=== PATIENT | female | born 1965 | race Caucasian/White ===

== ENCOUNTER 2016-10-11 10:29 | Day surgery (SDC) | payer BC ==
[2016-10-08 11:15] VITALS: BMI 30.9
[~2016-10-11 10:29] MED LIST: LACTATED RINGERS 1,000 ML IV SCH; LIDOCAINE 1% 20 ML VIAL (10MG/ML) FOR IV START INTRADERMA PRN
[2016-10-11 12:10] VITALS: RESP 18; TEMP 98
[2016-10-11] MEDS ORDERED: LACTATED RINGERS 1,000 ML IV ONE (12:14)
[2016-10-11] MEDS ORDERED: PROPOFOL 10 MG/ML 20 ML VIAL IV ONE (12:41)
--- NOTE | 2016-10-11 12:58 | P.PCN ---
Date of Procedure: 10/11/16 Preoperative Diagnosis: Postoperative Diagnosis: Procedure(s) Performed: BRIEF HISTORY: Patient is a 51-year-old pleasant white female, scheduled for an elective colonoscopy as a part of screening for colorectal neoplasia. PROCEDURE PERFORMED: Colonoscopy. PREOPERATIVE DIAGNOSIS: Screening for colon cancer. IV sedation per Anesthesia. PROCEDURE: After informed consent was obtained, the patient, was brought into the endoscopy unit. IV sedation was administered by Anesthesia under continuous monitoring. Digital rectal examination was normal. Initially the Olympus CF- 160 flexible video colonoscope was then inserted in the rectum, gradually advanced into the cecum without any difficulty. Careful examination was performed as the scope was gradually being withdrawn. Ileocecal valve and the appendiceal orifice were visualized and appeared normal. Prep was excellent. Mucosa of the cecum, ascending colon, transverse colon, descending colon, sigmoid colon, and rectum appeared normal. Retroflexion was performed in the rectum and no lesions were seen. The patient tolerated the procedure well. IMPRESSION: Normal-appearing colon from rectum to cecum with no evidence of colorectal neoplasia. RECOMMENDATIONS: Findings of this examination were discussed with the patient as well as his family. She was advised to have a repeat screening colonoscopy in 10 years. Implants: Indications for Procedure: Operative Findings: Description of Procedure:
[2016-10-11 13:55] VITALS: BP 117/60; PULSE 66
== END 2016-10-11 14:12 | disposition home or self-care (01) ==
LOC: ORWHC2ENDO 10:29
PROVIDERS: ATTEND Internal Medicine Gastroenterology
DX: Z12.11 Encounter for screening for malignant neoplasm of colon (principal); E07.9 Disorder of thyroid, unspecified; Z79.899 Other long term (current) drug therapy; Z87.891 Personal history of nicotine dependence
CPT/HCPCS: 81025; J2704; G0121

== ENCOUNTER → 2017-01-20 | Outpatient (CLI) | payer BC ==
--- NOTE | 2017-01-22 08:05 | MM ---
Reason for exam: screening (asymptomatic). Last mammogram was performed 1 year and 8 months ago. History: Cancelled Left Mammotome of the left breast, May 30, 2006. Physical Findings: A clinical breast exam by your physician is recommended on an annual basis and results should be correlated with mammographic findings. MG 3D Screening Mammo W/Cad Bilateral CC and MLO view(s) were taken. Prior study comparison: May 19, 2015, bilateral MG screening mammo w CAD. January 16, 2012, CAD bilateral diagnostic mammogram. May 24, 2010, bilateral digital screening mammo w/CAD. There are scattered fibroglandular densities. No significant changes when compared with prior studies. ASSESSMENT: Negative, BI-RAD 1 RECOMMENDATION: Routine screening mammogram of both breasts in 1 year.
== END | disposition home or self-care (01) ==
LOC: RADMAMWWP 16:18
PROVIDERS: ATTEND Obstetrics & Gynecology
DX: Z12.31 Encounter for screening mammogram for malignant neoplasm of breast (principal)
CPT/HCPCS: 77063; G0202

== ENCOUNTER → 2017-05-07 | Outpatient (CLI) | payer OTHER ==
--- NOTE | 2017-05-07 13:09 | ECHOS ---
STRESS ECHOCARDIOGRAM INDICATIONS: Chest pain. MEDICATIONS: Synthroid. BASELINE HEART RATE: 89 BASELINE BLOOD PRESSURE: 118/88 MAXIMUM HEART RATE: 151 MAXIMUM BLOOD PRESSURE: 176/47 85% MPHR: 144 100% MPHR: 169 METS: 10.3 MAXIMUM STAGE REACHED: 3 TOTAL EXERCISE TIME: 9:00 CLINICAL INFORMATION: Patient was exercised for a total period of 9 minutes. Peak heart rate of 151 was achieved. Maximum blood pressure of 176/47 mmHg was noted. Resting EKG shows normal sinus rhythm with normal VT interval and QRS duration and normal ST-T waves. No ST- segment depression suggestive of ischemia was noted. The baseline echocardiographic images reveal normal left ventricular chamber size with normal left ventricular systolic function. In the immediate post exercise period a normal increase in the wall thickness and contractility is noted. FINAL IMPRESSION: 1. This stress echocardiographic study is negative for stress-induced ischemia. 2. EKG portion of the stress test is not suggestive of ischemia. MMODL / IJN: [id number] /
== END | disposition home or self-care (01) ==
LOC: RADNMMAIN 09:47
PROVIDERS: ATTEND Family Medicine
DX: R07.9 Chest pain, unspecified (principal); E66.09 Other obesity due to excess calories; M79.602 Pain in left arm; Z82.49 Family history of ischemic heart disease and other diseases of the circulatory system
CPT/HCPCS: 93017; 93350

== ENCOUNTER → 2017-07-10 | Outpatient (CLI) | payer OTHER ==
--- NOTE | 2017-07-10 08:58 | US ---
EXAMINATION TYPE: US abdomen limited DATE OF EXAM: 07/10/2017 COMPARISON: US CLINICAL HISTORY: K76.0 Fatty Changes in Liver. Elevated liver enzymes EXAM MEASUREMENTS: Liver Length: 11.7 cm Gallbladder Wall: Surgically absent cm CBD: 0.5 cm Right Kidney: 12.7 x 5.1 x 5.6 cm Pancreas: visualized portions wnl Liver: There is diminished visualization of the portal triads, most commonly relating to mild hepati c steatosis. This limits evaluation for underlying hepatic masses. Gallbladder: Surgically absent CBD: wnl Right Kidney: small cortical cyst measures 1.5 x 1.2 x 1.4 cm, cortex appears thinned, lobular conto ur. IMPRESSION: 1. Hyperechoic hepatic echotexture most commonly related to hepatic steatosis. This appears mild in d egree. 2. Benign-appearing right cortical renal cyst.
== END | disposition home or self-care (01) ==
LOC: RADUSWWP 07:59
PROVIDERS: ATTEND Family Medicine
DX: K76.89 Other specified diseases of liver (principal); N28.1 Cyst of kidney, acquired; R74.0 Nonspecific elevation of levels of transaminase and lactic acid dehydrogenase [LDH]
CPT/HCPCS: 76705

== ENCOUNTER → 2019-03-08 | Outpatient (CLI) | payer OTHER ==
--- NOTE | 2019-03-11 10:58 | MM ---
Reason for exam: screening (asymptomatic). Last mammogram was performed 2 years and 2 months ago. History: Cancelled Left Mammotome of the left breast, May 30, 2006. Physical Findings: A clinical breast exam by your physician is recommended on an annual basis and results should be correlated with mammographic findings. MG 3D Screening Mammo W/Cad Bilateral CC and MLO view(s) were taken. Prior study comparison: January 20, 2017, bilateral MG 3d screening mammo w/cad. May 19, 2015, bilateral MG screening mammo w CAD. There are scattered fibroglandular densities. There are benign appearing round calcifications bilaterally. There is no discrete abnormality. ASSESSMENT: Benign, BI-RAD 2 RECOMMENDATION: Routine screening mammogram of both breasts in 1 year.
== END ==
LOC: RADMAMWWP 16:18
PROVIDERS: ATTEND Obstetrics & Gynecology
DX: Z12.31 Encounter for screening mammogram for malignant neoplasm of breast (principal)
CPT/HCPCS: 77063; 77067

== ENCOUNTER → 2020-02-10 | Outpatient (CLI) | payer OTHER ==
--- NOTE | 2020-02-10 16:54 | BD ---
EXAMINATION TYPE: Axial Bone Density DATE OF EXAM: 02/10/2020 COMPARISON: NONE CLINICAL HISTORY: 54-year-old female postmenopausal screening Height: 63.7 IN Weight: 172 LBS FRAX RISK QUESTIONS: Family History (Parent hip fracture): MOTHER Secondary Osteoporosis: 5. Chronic liver disease: FATTY LIVER RISK FACTORS HISTORY OF: Family History of Osteoporosis: YES MOTHER Active: YES Diet low in dairy products/other sources of calcium: YES Postmenopausal woman: AGE 54 MEDICATIONS: Thyroid Medications: YES Which medication: Synthroid How Lon YEARS Additional Medications: SYNTHROID, FISH OIL, MILK THISTLE, NAC, BABY ASPIRIN, EXAM MEASUREMENTS: Bone mineral densitometry was performed using the [employer] System. Bone mineral density as measured about the Lumbar spine is: ----- L1-L4(G/cm2): 1.210 T Score Values are as follows: ----- L2: -0.2 ----- L3: 0.5 ----- L4: 0.8 ----- L1-L4: 0.2 Bone mineral density BASELINE Bone mineral density about the R hip (g/cm2): 0.940 Bone mineral density about the L hip (g/cm2): 0.991 T Score values are as follows: -----R Neck: -0.7 -----L Neck: -0.3 -----R Total: 0.1 -----L Total: 0.1 Bone mineral density BASELINE IMPRESSION: Normal (Values between +1 and -1 indicate normal bone mass). Consider repeating this study in 5 year s or sooner if there is some new clinical indication. NOTE: T-SCORE=SD OF THE YOUNG ADULT MEAN.
== END | disposition home or self-care (01) ==
LOC: RADBDWWP 09:42
PROVIDERS: ATTEND Obstetrics & Gynecology
DX: N95.1 Menopausal and female climacteric states (principal)
CPT/HCPCS: 77080

== ENCOUNTER 2020-05-24 08:58 | Emergency (ER) | payer OTHER ==
[2020-05-24 09:05] VITALS: BP 132/72; PULSE 97; RESP 18; TEMP 98.6
--- NOTE | 2020-05-24 09:39 | ED ---
General Adult HPI - General Chief complaint: Upper Respiratory Infection Stated complaint: Covid+, cough Time Seen by Provider: 05/24/20 09:05 Source: patient, RN notes reviewed Mode of arrival: ambulatory Limitations: no limitations - History of Present Illness Initial comments: This a 55-year-old female presents emergency Department chief complaint of cough, known covid patient states that she's just the present 1 week ago at her PCP. Patient states she started fever 1 day prior. Patient states that she has no shortness of breath. She was advised to emergency room should any change in her symptoms. She states she woke up with a coughing fit but states that she began to no chest pain or shortness of breath. She states she has mild nasal co ngestion. Patient only has a history of hypothyroidism no other major past medical history no splenectomy. Patient denies any other complaints. - Related Data Home Medications Medication Instructions Recorded Confirmed Levothyroxine Sodium [Synthroid] 75 mcg PO DAILY 06/18/16 05/24/20 Albuterol Inhaler [Ventolin Hfa 2 puff INHALATION RT-Q4H PRN 05/24/20 05/24/20 Inhaler] Allergies Allergy/AdvReac Type Severity Reaction Status Date / Time bee sting AdvReac Unknown Swelling, Uncoded 05/24/20 10:00 Itching Review of Systems ROS Statement: Those systems with pertinent positive or pertinent negative responses have been documented in the HPI. ROS Other: All systems not noted in ROS Statement are negative. Past Medical History Past Medical History: Thyroid Disorder History of Any Multi-Drug Resistant Organisms: None Reported Past Surgical History: Cholecystectomy, Hernia Repair, Orthopedic Surgery Additional Past Surgical History / Comment(s): INCISIONAL HERNIA, ARTHROSCOPIC SHOULDER SURGERY. Past Anesthesia/Blood Transfusion Reactions: No Reported Reaction Past Psychological History: No Psychological Hx Reported Smoking Status: Never smoker Past Alcohol Use History: Rare Past Drug Use History: None Reported - Past Family History Mother Family Medical History: Deep Vein Thrombosis (DVT) Brother(s) Family Medical History: Cancer Additional Family Medical History / Comment(s): STAGE 4 LYMPHOMA. Father Family Medical History: Coronary Artery Disease (CAD) General Exam Limitations: no limitations General appearance: alert, in no apparent distress Head exam: Present: atraumatic, normocephalic, normal inspection Eye exam: Present: normal appearance, PERRL, EOMI. Absent: scleral icterus, conjunctival injection, periorbital swelling ENT exam: Present: normal exam, normal oropharynx, mucous membranes moist Neck exam: Present: normal inspection, full ROM. Absent: tenderness, menin gismus, lymphadenopathy Respiratory exam: Present: normal lung sounds bilaterally. Absent: respiratory distress, wheezes, rales, rhonchi, stridor Cardiovascular Exam: Present: regular rate, normal rhythm, normal heart sounds. Absent: systolic murmur, diastolic murmur, rubs, gallop, clicks GI/Abdominal exam: Present: soft, normal bowel sounds. Absent: distended, tenderness, guarding, rebound, rigid Neurological exam: Present: alert, oriented X3 Skin exam: Present: warm, dry, intact, normal color. Absent: rash Course Vital Signs 05/24/20 05/24/20 09:00 10:09 Temperature 98.6 F Pulse Rate 97 Respiratory 18 Rate Blood Pressure 132/72 O2 Sat by Pulse 94 L 97 Oximetry Medical Decision Making - Medical Decision Making Patient results x-ray shows mild patchy areas consistent with covid 19 infection. Patient pulse ox is 96-97 in the room ambulatory was around 95%. She has no current shortness of breath. Patient be discharged in stable c ondition return parameters were discussed. Disposition Clinical Impression: COVID-19 Disposition: HOME SELF-CARE Condition: Stable Instructions (If sedation given, give patient instructions): Coronavirus Disease 2019 (COVID-19) Additional Instructions: Please return to the Emergency Department if symptoms worsen or any other concerns. Is patient prescribed a controlled substance at d/c from ED?: No Referrals: Angel Mcneill DO [Primary Care Provider] - 1-2 days Time of Disposition: 10:12
--- NOTE | 2020-05-24 10:00 | XR ---
EXAMINATION TYPE: XR chest 2V DATE OF EXAM: 05/24/2020 COMPARISON: NONE HISTORY: Cough and fever. TECHNIQUE: Frontal and lateral views of the chest are obtained. FINDINGS: There are multifocal predominantly peripheral opacities in the mid to lower lungs bilatera lly. No pleural effusion or pneumothorax. The cardiac silhouette size is within normal limits. The osseous structures are intact. Cholecystectomy clips noted. IMPRESSION: Multifocal predominantly peripheral bilateral mid to lower lung opacities consistent wit h covid-19 infection.
== END 2020-05-24 10:18 | disposition home or self-care (01) ==
LOC: EC 08:58
DX: U07.1 COVID-19 (principal); E03.9 Hypothyroidism, unspecified; Z79.890 Hormone replacement therapy; Z90.49 Acquired absence of other specified parts of digestive tract; Z91.030 Bee allergy status
CPT/HCPCS: 71046; 99283

== ENCOUNTER → 2021-01-08 | Outpatient (CLI) | payer BC ==
--- NOTE | 2021-01-10 10:48 | MM ---
Reason for exam: screening (asymptomatic). Last mammogram was performed 1 year and 10 months ago. History: Patient is postmenopausal. Cancelled Left Mammotome of the left breast, May 30, 2006. Physical Findings: A clinical breast exam by your physician is recommended on an annual basis and results should be correlated with mammographic findings. MG 3D Screening Mammo W/Cad Bilateral CC and MLO view(s) were taken. Prior study comparison: March 08, 2019, bilateral MG 3d screening mammo w/cad. January 20, 2017, bilateral MG 3d screening mammo w/cad. May 19, 2015, bilateral MG screening mammo w CAD. There are scattered fibroglandular densities. No significant changes when compared with prior studies. ASSESSMENT: Benign, BI-RAD 2 RECOMMENDATION: Routine screening mammogram of both breasts in 1 year.
== END | disposition home or self-care (01) ==
LOC: RADMAMWWP 16:29
PROVIDERS: ATTEND Obstetrics & Gynecology
DX: Z12.31 Encounter for screening mammogram for malignant neoplasm of breast (principal); Z78.0 Asymptomatic menopausal state
CPT/HCPCS: 77063; 77067

== ENCOUNTER → 2022-01-17 | Outpatient (CLI) | payer BC ==
--- NOTE | 2022-01-17 17:06 | MM ---
Reason for Exam: Screening (asymptomatic). Last screening mammogram was performed 12 month(s) ago. Patient History: Menarche at age 14. First Full-Term at age 22. Postmenopausal. 05/30/2006, Cancelled Left Mammotome on the left side. Risk Values: Dot 5 year model risk: 1.1%. NCI Lifetime model risk: 7.4%. Prior Study Comparison: 05/19/2015 Bilateral Screening Mammogram, [facility]. 01/20/2017 Bilateral Screening Mammogram, [facility]. 03/08/2019 Bilateral Screening Mammogram, [facility]. 01/08/2021 Bilateral Screening Mammogram, [facility]. Tissue Density: The breast tissue is almost entirely fat. Findings: Analyzed By CAD. Pattern appears stable. No suspicious groups of microcalcifications, spiculated or lobular masses, architectural distortion or other secondary signs of malignancy are mammographically apparent. Overall Assessment: Benign, BI-RAD 2 Management: Screening Mammogram of both breasts in 1 year. A negative mammogram report should not preclude additional follow up of suspicious palpable abnormalities. Patient should continue monthly self breast exam. A clinical breast exam by your physician is recommended on an annual basis and results should be correlated with mammographic findings. Electronically signed and approved by: Aroldo Baez D.O. Radiologis
== END | disposition home or self-care (01) ==
LOC: RADMAMWWP 09:52
PROVIDERS: ATTEND Obstetrics & Gynecology
DX: Z12.31 Encounter for screening mammogram for malignant neoplasm of breast (principal)
CPT/HCPCS: 77063; 77067

== ENCOUNTER → 2023-01-20 | Outpatient (CLI) | payer BC ==
--- NOTE | 2023-01-20 10:10 | MM ---
Reason for Exam: Screening (asymptomatic). Last screening mammogram was performed 12 month(s) ago. Patient History: Menarche at age 14. First Full-Term at age 22. Postmenopausal. 05/30/2006, Cancelled Left Mammotome on the left side. Risk Values: Dot 5 year model risk: 1.1%. NCI Lifetime model risk: 7.2%. Prior Study Comparison: 03/08/2019 Bilateral Screening Mammogram, [facility]. 01/08/2021 Bilateral Screening Mammogram, [facility]. 01/17/2022 Bilateral MG 3D screening mammo w/cad, [facility]. Tissue Density: There are scattered fibroglandular densities. Findings: Analyzed By CAD. There is no suspicious group of microcalcifications or new suspicious mass in either breast. Overall Assessment: Negative, BI-RAD 1 Management: Screening Mammogram of both breasts in 1 year. A clinical breast exam by your physician is recommended on an annual basis and results should be correlated with mammographic findings. Note on Dot scores and lifetime risk: 1. A Dot score greater than 3% is considered moderate risk. If this is the case, consider specialist referral to assess eligibility for a risk reducing agent. If overall lifetime risk for the development of breast cancer is 20% or higher, the patient may qualify for future screening with alternating mammogram and breast MRI. Electronically signed and approved by: Lenin Barger D.O.
== END | disposition home or self-care (01) ==
LOC: RADMAMWWP 08:54
PROVIDERS: ATTEND Obstetrics & Gynecology
DX: Z12.31 Encounter for screening mammogram for malignant neoplasm of breast (principal); Z78.0 Asymptomatic menopausal state
CPT/HCPCS: 77063; 77067

== ENCOUNTER → 2024-01-22 | Outpatient (CLI) | payer BC ==
--- NOTE | 2024-01-25 15:26 | MM ---
Reason for Exam: Screening (asymptomatic). Last screening mammogram was performed 12 month(s) ago. Patient History: Menarche at age 14. First Full-Term at age 22. Postmenopausal. 05/30/2006, Cancelled Left Mammotome on the left side. Risk Values: Dot 5 year model risk: 1.1%. NCI Lifetime model risk: 7.1%. Prior Study Comparison: 01/08/2021 Bilateral Screening Mammogram, [facility]. 01/17/2022 Bilateral MG 3D screening mammo w/cad, [facility]. 01/20/2023 Bilateral MG 3D screening mammo w/cad, [facility]. Tissue Density: The breasts are almost entirely fatty. Findings: Analyzed By CAD. The pattern is symmetrical. No significant interval change. Right breast is larger than the left, stable from comparison No suspicious groups of microcalcifications, spiculated or lobular masses, architectural distortion or other secondary signs of malignancy are mammographically apparent. Overall Assessment: Benign, BI-RAD 2 Management: Screening Mammogram of both breasts in 1 year. A negative mammogram report should not preclude additional follow up of suspicious palpable abnormalities. Patient should continue monthly self breast exam. A clinical breast exam by your physician is recommended on an annual basis and results should be correlated with mammographic findings. Note on Dot scores and lifetime risk: 1. A Dot score greater than 3% is considered moderate risk. If this is the case, consider specialist referral to assess eligibility for a risk reducing agent. 2. If overall lifetime risk for the development of breast cancer is 20% or higher, the patient may qualify for future screening with alternating mammogram and breast MRI. [facility], , 01/25/2024 3:23 PM. Electronically signed and approved by: Aroldo Baez D.O. Radiologis
== END | disposition home or self-care (01) ==
LOC: RADMAMWWP 15:46
PROVIDERS: ATTEND Family Medicine
DX: Z12.31 Encounter for screening mammogram for malignant neoplasm of breast (principal); Z78.0 Asymptomatic menopausal state; R92.313 Mammographic fatty tissue density, bilateral breasts
CPT/HCPCS: 77063; 77067